=== PATIENT | female | born 1955 | race Asian ===

== ENCOUNTER → 2017-08-12 | Outpatient (CLI) | payer OTHER ==
--- NOTE | 2017-08-12 11:30 | RADRPT ---
PROCEDURE: US Right lower extremity veins. CLINICAL INDICATION: Right leg pain and swelling. TECHNIQUE: Multiple longitudinal and transverse images of the right lower extremity veins were obt ained with fuentes scale and color Doppler imaging. 2D grayscale measurements with compression, color Doppler flow, and augmentation was performed. The calf veins were not evaluated. COMPARISON: No prior studies are available for comparison. FINDINGS: The right common femoral, femoral and popliteal veins are normally compressible throughout. Color f low demonstrates normal filling of the vessels. Normal waveforms are visualized and there is normal response to augmentation. IMPRESSION: 1. No evidence of deep vein thrombosis involving the right lower extremity. RPTAT: QQ .Philipp Hidalgo MD, MD Date Time Electronically viewed and signed by .Philipp Hidalgo MD, on 08/12/2017 11:29 .R/
== END | disposition home or self-care (01) ==
LOC: VAS 10:01
PROVIDERS: ATTEND Internal Medicine
DX: M79.605 Pain in left leg (principal)
CPT/HCPCS: 93971

== ENCOUNTER 2018-09-01 08:53 | Day surgery (SDC) | END 2018-09-01 17:22 | disposition home or self-care (01) ==